=== PATIENT | female | born 1975 | race African-American/Black ===

== ENCOUNTER 2022-05-13 14:00 | Emergency (ER) | payer MEDICAID ==
[~2022-05-13] VITALS: Ht 165.1 cm; Wt 78.0 kg
[2022-05-13 14:07] VITALS: BP 148/92
[2022-05-13] MEDS ORDERED: LISI-186 PO (14:13)
[2022-05-13 19:02] LABS: BASOPHILS % 0.6 % (0.0-2.0); EOSINOPHILS % 0.4 % (0.0-5.0); HEMATOCRIT. 37.1 % (36.0-48.0); HEMOGLOBIN. 12.2 g/dL (12.0-16.0); LYMPHOCYTES % 21.9 % (20.0-50.0); MEAN CORPUSCULAR HEMOGLOBIN 29.2 pg (28.0-32.0); MEAN CORPUSCULAR VOLUME 88.8 fL (81.0-99.0); MEAN PLATELET VOLUME 7.8 fl (7.4-10.4); MONOCYTES % 4.8 % (2.0-8.0); NEUTROPHILS % 72.3 % (40.0-76.0); PLATELET 400 x1000/uL (130-400); RED BLOOD CELL COUNT 4.18 mill/uL (4.2-5.4); RED CELL DISTRIBUTION WIDTH 14.7 % (11.6-14.6)
[2022-05-13 19:06] LABS: CHLORIDE 104 mEq/L (98-107)
[2022-05-13 19:41] LABS: CLARITY URINE CLOUDY (CLEAR); COLOR URINE YELLOW (YELLOW); KETONES URINE NEGATIVE (NEGATIVE); LEUKOCYTE ESTERASE URINE TRACE (NEGATIVE); NITRITE URINE NEGATIVE (NEGATIVE); OCCULT BLOOD URINE NEGATIVE (NEGATIVE); PROTEIN URINE NEGATIVE (NEGATIVE); SPECIFIC GRAVITY URINE 1.007 (1.005-1.030); UROBILINOGEN URINE 0.2 E.U./dL (0.2-1.0)
== END 2022-05-13 20:04 | disposition home or self-care (01) ==
LOC: ER 14:00
DX: R42 Dizziness and giddiness (principal); E78.00 Pure hypercholesterolemia, unspecified; I10 Essential (primary) hypertension; Z88.8 Allergy status to other drugs, medicaments and biological substances
CPT/HCPCS: 36415; 80053; 81003; 82962; 85025; 99284

== ENCOUNTER 2023-04-05 18:15 | Emergency (ER) | payer OTHER, BC ==
[~2023-04-05] VITALS: Ht 162.6 cm; Wt 68.0 kg
[~2023-04-05 18:15] MED LIST: LISI-186 PO
[2023-04-05 19:20] LABS: BASOPHILS % 0.7 % (0.0-2.0); EOSINOPHILS % 1.1 % (0.0-5.0); HEMOGLOBIN. 11.5 g/dL (12.0-16.0); LYMPHOCYTES % 25.7 % (20.0-50.0); MEAN CORPUSCULAR HEMOGLOBIN 29.1 pg (28.0-32.0); MEAN CORPUSCULAR VOLUME 88.6 fL (81.0-99.0); MEAN PLATELET VOLUME 7.8 fl (7.4-10.4); MONOCYTES % 5.3 % (2.0-8.0); NEUTROPHILS % 67.2 % (40.0-76.0); PLATELET 373 x1000/uL (130-400); RED BLOOD CELL COUNT 3.95 mill/uL (4.2-5.4); RED CELL DISTRIBUTION WIDTH 14.2 % (11.6-14.6)
[2023-04-05 19:27] LABS: CHLORIDE 106 mEq/L (98-107)
[2023-04-05] MEDS ORDERED: LOSARTAN POTASSIUM 100 MG TABLET PO ONE (21:00)
[2023-04-05] MEDS ORDERED: MECL-159 MT (21:06)
[2023-04-05 22:04] VITALS: BP 126/81
== END 2023-04-05 22:07 | disposition home or self-care (01) ==
LOC: ER 18:15
DX: I10 Essential (primary) hypertension (principal); D64.9 Anemia, unspecified
CPT/HCPCS: 36415; 70450; 71045; 80053; 83880; 85025; 86850; 86900; 86901; 93005; 99285; Z7610

== ENCOUNTER 2023-07-25 12:45 | Emergency (ER) | payer BC, OTHER ==
[~2023-07-25] VITALS: Ht 165.1 cm; Wt 79.0 kg
[~2023-07-25 12:45] MED LIST changes: +MECL-159 MT
[2023-07-25 12:50] VITALS: BP 154/88; PULSE 101; RESP 16; TEMP 98.8; O2SAT 100
[2023-07-25 14:40] LABS: BASOPHILS % 0.6 % (0.0-2.0); EOSINOPHILS % 0.4 % (0.0-5.0); HEMATOCRIT. 33.7 % (36.0-48.0); LYMPHOCYTES % 14.1 % (20.0-50.0); MEAN CORPUSCULAR HEMOGLOBIN 28.2 pg (28.0-32.0); MEAN CORPUSCULAR HGB CONC 32.6 g/dL (31.0-37.0); MEAN CORPUSCULAR VOLUME 86.6 fL (81.0-99.0); MEAN PLATELET VOLUME 7.8 fl (7.4-10.4); MONOCYTES % 4.6 % (2.0-8.0); NEUTROPHILS % 80.3 % (40.0-76.0); PLATELET 399 x1000/uL (130-400); RED BLOOD CELL COUNT 3.89 mill/uL (4.2-5.4); RED CELL DISTRIBUTION WIDTH 14.3 % (11.6-14.6); WHITE BLOOD COUNT 8.4 x1000/uL (4.5-11.0)
[2023-07-25 15:56] LABS: CHLORIDE 103 mEq/L (98-107); INDEX HEMOLYSI 1 (1-3); INDEX ICTERIC 1 (1-4); INDEX LIPEMIC 1 (1-3); POTASSIUM 3.7 mEq/L (3.5-5.1); SODIUM 138 mEq/L (136-145)
[2023-07-25 16:07] LABS: ALANINE AMINOTRANSFERASE 20 IU/L (13-61); ALBUMIN 4.1 g/dL (3.4-5.0); ASPARTATE AMINOTRANSFERASE 18 IU/L (15-37); BILIRUBIN TOTAL 0.1 mg/dL (0.1-1.0); CALCIUM 9.8 mg/dL (8.5-10.1); CARBON DIOXIDE 27 mEq/L (21-32); CREATININE 0.6 mg/dL (0.6-1.3); GLUCOSE 145 mg/dL (70-105); UREA NITROGEN BLOOD 11 mg/dL (7-21)
[2023-07-25] MEDS ORDERED: HYDR10TA34 MT (16:09)
== END 2023-07-25 17:17 | disposition home or self-care (01) ==
LOC: ER 12:57
DX: R25.3 Fasciculation (principal)
CPT/HCPCS: 36415; 80053; 85025; 99283

== ENCOUNTER 2024-03-25 18:04 | Emergency (ER) | payer OTHER, MEDICAID ==
[~2024-03-25] VITALS: Ht 165.1 cm; Wt 77.3 kg
[~2024-03-25 18:04] MED LIST changes: +HYDR10TA34 MT; -MECL-159 MT; +MECL-299 MT
[2024-03-25 18:08] VITALS: BP 161/90; PULSE 99; RESP 18; TEMP 98.5; O2SAT 100
[2024-03-25 19:00] LABS: BASOPHILS % 0.6 % (0.0-2.0); EOSINOPHILS % 0.6 % (0.0-5.0); HEMATOCRIT. 33.7 % (36.0-48.0); HEMOGLOBIN. 11.5 g/dL (12.0-16.0); LYMPHOCYTES % 20.6 % (20.0-50.0); MEAN CORPUSCULAR HEMOGLOBIN 30.3 pg (28.0-32.0); MEAN PLATELET VOLUME 7.6 fl (7.4-10.4); MONOCYTES % 4.6 % (2.0-8.0); NEUTROPHILS % 73.6 % (40.0-76.0); PLATELET 381 x1000/uL (130-400); RED BLOOD CELL COUNT 3.79 mill/uL (4.2-5.4); WHITE BLOOD COUNT 10.2 x1000/uL (4.5-11.0)
[2024-03-25 19:15] LABS: TROPONIN I HIGH SENSITIVITY < 4 ng/L (3.0-34)
[2024-03-25 19:42] LABS: CHLORIDE 103 mEq/L (98-107); POTASSIUM 3.3 mEq/L (3.5-5.1); SODIUM 141 mEq/L (136-145)
[2024-03-25 19:43] LABS: CARBON DIOXIDE 28 mEq/L (21-32)
[2024-03-25 19:44] LABS: CALCIUM 10.6 mg/dL (8.7-10.4)
[2024-03-25] MEDS: ASPIRIN 81MG TABLET PO ONE (19:45)
[2024-03-25 19:47] LABS: HCG SCREEN NEGATIVE
[2024-03-25 19:48] LABS: CREATININE 0.8 mg/dL (0.6-1.0); GLUCOSE 139 mg/dL (70-105)
[2024-03-25 19:49] LABS: UREA NITROGEN BLOOD 11 mg/dL (9-23)
[2024-03-25 19:50] LABS: ALANINE AMINOTRANSFERASE 19 IU/L (10-49); ALBUMIN 4.6 g/dL (3.2-4.8); ASPARTATE AMINOTRANSFERASE 20 IU/L (<34)
[2024-03-25 19:51] LABS: BILIRUBIN TOTAL 0.4 mg/dL (0.1-1.0); PROTEIN TOTAL 7.8 g/dL (6.0-8.3)
[2024-03-25 21:47] LABS: TROPONIN I HIGH SENSITIVITY < 4 ng/L (3.0-34)
== END 2024-03-25 23:03 | disposition home or self-care (01) ==
LOC: ER 18:04
DX: R07.89 Other chest pain (principal); I10 Essential (primary) hypertension; K21.9 Gastro-esophageal reflux disease without esophagitis
CPT/HCPCS: 80053; 84703; 83880; 85025; 84484; 36415; 71045; 93005; 99285; Z7610

== ENCOUNTER 2024-11-22 09:31 | Emergency (ER) | payer OTHER ==
[~2024-11-22] VITALS: Ht 165.1 cm; Wt 75.0 kg
[2024-11-22 09:33] VITALS: O2SAT 100
[2024-11-22 09:37] VITALS: BP 151/90; TEMP 98.9; O2SAT 99
[2024-11-22 10:41] VITALS: PULSE 88; RESP 20
[2024-11-22] MEDS: IPRATROPIUM/ALBUTEROL 0.5-3(2.5)MG/3ML NEB HHN ONE (10:41)
[2024-11-22] MEDS ORDERED: DEXAMETHASONE 0.5MG/5ML ORAL SYR PO ONE (10:45)
[2024-11-22] MEDS ORDERED: BENZ100C86 MT (11:58)
[2024-11-22] MEDS ORDERED: ALBU18HF2 IH (11:58)
== END 2024-11-22 12:08 | disposition home or self-care (01) ==
LOC: ER 09:31
DX: J45.901 Unspecified asthma with (acute) exacerbation (principal); I10 Essential (primary) hypertension; K21.9 Gastro-esophageal reflux disease without esophagitis
CPT/HCPCS: 71045; 94640; 94070; 99283; J8540; Z7610 ×3

== ENCOUNTER 2025-05-09 09:07 | Emergency (ER) | payer BC, OTHER ==
[~2025-05-09] VITALS: Ht 165.1 cm; Wt 72.0 kg
[~2025-05-09 09:07] MED LIST changes: +ALBU18HF2 IH; +BENZ100C86 MT
[2025-05-09 09:17] VITALS: TEMP 36.7; O2SAT 100
[2025-05-09 09:39] LABS: BASOPHILS % 0.7 % (0.0-2.0); EOSINOPHILS % 0.9 % (0.0-5.0); HEMATOCRIT. 33.7 % (36.0-48.0); HEMOGLOBIN. 10.8 g/dL (12.0-16.0); LYMPHOCYTES % 20.7 % (20.0-50.0); MEAN PLATELET VOLUME 7.0 fl (7.4-10.4); MONOCYTES % 5.0 % (2.0-8.0); NEUTROPHILS % 72.7 % (40.0-76.0); PLATELET 483 x1000/uL (130-400); RED BLOOD CELL COUNT 4.04 mill/uL (4.2-5.4); RED CELL DISTRIBUTION WIDTH 14.5 % (11.6-14.6)
[2025-05-09] MEDS: FAMOTIDINE 20MG TABLET PO ONE (09:52)
[2025-05-09] MEDS: ACETAMINOPHEN 325MG TABLET PO ONE (09:53)
[2025-05-09 09:56] LABS: CREATININE 0.8 mg/dL (0.6-1.0); TROPONIN I HIGH SENSITIVITY < 4 ng/L (3.0-34); UREA NITROGEN BLOOD 6 mg/dL (9-23)
[2025-05-09 10:04] LABS: HCG SCREEN NEGATIVE
[2025-05-09 10:54] VITALS: BP 129/78; PULSE 70; RESP 16; O2SAT 99
== END 2025-05-09 10:56 | disposition home or self-care (01) ==
LOC: ER 09:07
DX: R07.89 Other chest pain (principal); I10 Essential (primary) hypertension; I48.91 Unspecified atrial fibrillation; J45.909 Unspecified asthma, uncomplicated; Z79.899 Other long term (current) drug therapy
CPT/HCPCS: 36415; 71045; 80048; 84484; 84703; 85025; 85379; 93005; 99285